=== PATIENT | female | born 1940 | race African-American/Black ===

== ENCOUNTER → 2017-04-01 | Outpatient (CLI) | payer MEDICARE ==
[~2017-04-01] MED LIST: AEROI INH; DOXY100T OR; FLUT1INH INH; LEVO25TA4 PO; LISI10TA3 PO; LORT5TAB PO; LORTA5 PO; PRED20 PO; SIMV20TA PO; SYNT25TA PO; TEMA15CA PO; TRAM50TA PO; TRAZ50TA12 PO; VENTAER INH; ZOSTINJ SQ
[2017-04-01 08:22] LABS: AUTOMATED NEUTROPHIL # 6.3 TH/MM3 (1.8-7.7); BASOPHIL % 0.5 % (0.0-2.0); EOSINOPHIL # 0.2 TH/MM3 (0-0.4); EOSINOPHIL % 2.6 % (0.0-4.0); HEMATOCRIT 36.3 % (35.0-46.0); HEMO FLAGS DIFF FINAL; LYMPH % 18.6 % (9.0-44.0); LYMPHOCYTE # 1.7 TH/MM3 (1.0-4.8); MEAN CELL VOLUME 87.7 FL (80.0-100.0); MEAN CORPUSCULAR HEMOGLOBIN 28.9 PG (27.0-34.0); MONO % 7.6 % (0.0-8.0); NEUT % 70.7 % (16.0-70.0); PLATELET COUNT 291 TH/MM3 (150-450); RED BLOOD COUNT 4.14 MIL/MM3 (4.00-5.30); RED CELL DISTRIBUTION WIDTH 13.7 % (11.6-17.2); WHITE BLOOD COUNT 8.9 TH/MM3 (4.0-11.0)
[2017-04-01 08:43] LABS: ANION GAP 6 MEQ/L (5-15); AST (GOT) 10 U/L (15-37); BICARBONATE 28.8 MEQ/L (21.0-32.0); BLOOD UREA NITROGEN 13 MG/DL (7-18); CHLORIDE 107 MEQ/L (98-107); GLOMERULAR FILTRATION RATE 60 ML/MIN (>89); GLUCOSE,FASTING 160 MG/DL (74-99); POTASSIUM 4.1 MEQ/L (3.5-5.1); SODIUM (NA) 142 MEQ/L (136-145)
[2017-04-01 08:52] LABS: ALKALINE PHOSPHATASE 78 U/L (45-117); ALT (GPT) 12 U/L (10-53); FREE T3 2.63 PG/ML (2.18-3.98); FREE T4 1.23 NG/DL (0.76-1.46); HDL CHOLESTEROL 50.6 MG/DL (40.0-60.0); LDL CHOLESTEROL 106 MG/DL (0-99); TOTAL BILIRUBIN ADULT 0.4 MG/DL (0.2-1.0)
[2017-04-01 10:26] LABS: MICRO ALBUMIN RANDOM URINE RAW 12.7 MG/L (0.0-30.0)
[2017-04-01 17:10] LABS: HEMOGLOBIN A1a 1.1 %; HEMOGLOBIN A1b 1.8 %; HEMOGLOBIN Ao 82.6 %; HEMOGLOBIN LA1C 2.3 %; HEMOGLOBIN P3 4.1 %
== END ==
LOC: CLAB 07:36
PROVIDERS: ATTEND Internal Medicine
DX: M19.90 Unspecified osteoarthritis, unspecified site (principal); E11.21 Type 2 diabetes mellitus with diabetic nephropathy; I10 Essential (primary) hypertension
CPT/HCPCS: 36415; 80053; 80061; 82043; 83036; 84439; 84443; 84481; 85025

== ENCOUNTER → 2017-05-16 | Outpatient (CLI) | payer MEDICARE ==
[2017-05-16 08:33] LABS: HEMATOCRIT 30.9 % (35.0-46.0); MEAN CELL VOLUME 89.3 FL (80.0-100.0); MEAN CORPUSCULAR HEMOGLOBIN 28.3 PG (27.0-34.0); MEAN CORPUSCULAR HGB CONC 31.7 % (32.0-36.0); PLATELET COUNT 274 TH/MM3 (150-450); RED BLOOD COUNT 3.46 MIL/MM3 (4.00-5.30); REVIEW FLAG FINAL
[2017-05-16 09:28] LABS: ANION GAP 11 MEQ/L (5-15); AST (GOT) 10 U/L (15-37); BICARBONATE 17.3 MEQ/L (21.0-32.0); BLOOD UREA NITROGEN 73 MG/DL (7-18); CHLORIDE 113 MEQ/L (98-107); GLOMERULAR FILTRATION RATE 11 ML/MIN (>89); GLUCOSE,FASTING 115 MG/DL (74-99); POTASSIUM 4.6 MEQ/L (3.5-5.1); SODIUM (NA) 141 MEQ/L (136-145)
[2017-05-16 09:39] LABS: ALKALINE PHOSPHATASE 63 U/L (45-117); ALT (GPT) 14 U/L (10-53); FREE T4 1.25 NG/DL (0.76-1.46); HDL CHOLESTEROL 32.2 MG/DL (40.0-60.0); LDL CHOLESTEROL 63 MG/DL (0-99); TOTAL BILIRUBIN ADULT 0.2 MG/DL (0.2-1.0)
== END ==
LOC: CLAB 08:11
PROVIDERS: ATTEND Internal Medicine
DX: E78.5 Hyperlipidemia, unspecified (principal); I10 Essential (primary) hypertension; E03.9 Hypothyroidism, unspecified; Z00.00 Encounter for general adult medical examination without abnormal findings; Z12.11 Encounter for screening for malignant neoplasm of colon
CPT/HCPCS: 36415; 80053; 80061; 84439; 84443; 84481; 85027

== ENCOUNTER 2017-05-17 12:05 | Inpatient (IN) | payer MEDICARE ==
[~2017-05-17] VITALS: Ht 165.1 cm; Wt 54.9 kg
[~2017-05-17 12:05] MED LIST changes: -FLUT1INH INH; -LEVO25TA4 PO; -LISI10TA3 PO; -SIMV20TA PO; -TEMA15CA PO; -TRAM50TA PO; -TRAZ50TA12 PO; -ZOSTINJ SQ
[2017-05-17 12:07] VITALS: BP 110/55; PULSE 75; RESP 20; TEMP 98; O2SAT 100
[2017-05-17 15:07] VITALS: BP 137/66; PULSE 77; RESP 18; TEMP 98.7; O2SAT 100
[2017-05-17] MEDS ORDERED: FLUT1INH INH (15:13)
[2017-05-17] MEDS ORDERED: TRAM50TA PO (15:13)
[2017-05-17] MEDS ORDERED: ZOSTINJ SQ (15:13)
[2017-05-17] MEDS ORDERED: LEVO25TA4 PO (15:13)
[2017-05-17] MEDS ORDERED: LISI10TA3 PO (15:13)
[2017-05-17] MEDS ORDERED: SIMV20TA PO (15:13)
[2017-05-17] MEDS ORDERED: TEMA15CA PO (15:13)
[2017-05-17] MEDS ORDERED: TRAZ50TA12 PO (15:13)
[2017-05-17] MEDS ORDERED: SODIUM CHLOR 0.9% 1000 ML INJ 1,000 ML IV ONE (15:15)
--- NOTE | 2017-05-17 15:31 | PD ---
HPI Chief Complaint: General Weakness Time Seen by Provider: 15:02 Travel History International Travel<30 days: No Contact w/Intl Traveler<30days: No Traveled to known affect area: No History of Present Illness HPI 76 y/o female presents with decreased appetite, generalized weakness, nausea and vomiting that is been present for the past couple of weeks. She went to her primary care physician that did blood work this morning that showed that she had kidney failure and wanted her to come here for admission. The patient denies any pain or any other concurrent complaints. Quality is generally weak. Severity is all over. Duration is past couple weeks. She denies prior history of issues with her kidneys. PFSH Past Medical History Arthritis: Yes Asthma: Yes Autoimmune Disease: No Blood Disorders: No Anxiety: No Depression: No Heart Rhythm Problems: No Cancer: No Cardiovascular Problems: Yes High Cholesterol: No Chemotherapy: No Chest Pain: No Congestive Heart Failure: No COPD: No Cerebrovascular Accident: No Diabetes: No Diminished Hearing: No GERD: No Glaucoma: No Headaches: No Hepatitis: No Hiatal Hernia: No Hypertension: No Kidney Stones: No Musculoskeletal: Yes Respiratory: Yes Myocardial Infarction: No Radiation Therapy: No Renal Failure: No Seizures: No Sickle Cell Disease: No Sleep Apnea: No Thyroid Disease: Yes Ulcer: No Menopausal: Yes Past Surgical History Surgical History: No Previous Surgery Abdominal Surgery: No AICD: No Cardiac Surgery: No Ear Surgery: No Endocrine Surgery: No Eye Surgery: No Genitourinary Surgery: No Gynecologic Surgery: No Oral Surgery: No Pacemaker: No Thoracic Surgery: No Social History Alcohol Use: No Tobacco Use: No Substance Use: No Allergies-Medications (Allergen,Severity, Reaction): Coded Allergies: ibuprofen (Verified Allergy, Severe, ARRYTHMIA, 05/17/17) naproxen (Unverified Allergy, Severe, 05/17/17) Uncoded Allergies: ALEVE (Allergy, Mild, 09/24/03) Reported Meds & Prescriptions Reported Meds & Active Scripts Active Reported Zostavax Inj (Zoster Vaccine Live) 0.65 Ml Inj 0.65 Ml SQ .ONCE Trazodone (Trazodone HCl) 50 Mg Tab 50 Mg PO HS Tramadol (Tramadol HCl) 50 Mg Tab 50 Mg PO Q8H PRN Temazepam 15 Mg Cap 15 Mg PO HS PRN Simvastatin 20 Mg Tab 20 Mg PO DAILY Lisinopril 10 Mg Tab 10 Mg PO DAILY Levothyroxine (Levothyroxine Sodium) 25 Mcg Tab 25 Mcg PO DAILY Breo Ellipta Inh (Fluticasone/Vilanterol) 100-25 Mcg/Act Inh 1 Puff INH DAILY Use daily at the same time. Review of Systems Except as stated in HPI: all other systems reviewed are Neg Physical Exam Narrative GENERAL: Well-nourished, well-developed patient. SKIN: Warm and dry. HEAD: Normocephalic and atraumatic. EYES: No injection or drainage. ENT: No nasal drainage noted. NECK: Supple, trachea midline. CARDIOVASCULAR: Regular rate and rhythm RESPIRATORY: Breath sounds equal bilaterally. No accessory muscle use. GASTROINTESTINAL: Abdomen soft, non-tender, nondistended. NEUROLOGICAL: Awake and alert. Motor and sensory grossly within normal limits. Normal speech. Data Data Last Documented VS Vital Signs Date Time Temp Pulse Resp B/P (MAP) Pulse Ox O2 Delivery O2 Flow Rate FiO2 05/17/17 15:07 98.7 77 18 137/66 (89) 100 Room Air Orders Orders Urinalysis - C+S If Indicated (05/17/17 15:09) Sodium Chlor 0.9% 1000 Ml Inj (Ns 1000 M (05/17/17 15:15) Vascular Access Team Consult/P PRN (05/17/17 15:24) Vascular Access Team Consult/P PRN (05/17/17 15:24) Vascular Poc Ultrasound (05/17/17 ) Admit Order (Ed Use Only) (05/17/17 15:49) MDM Medical Decision Making Medical Screen Exam Complete: Yes Emergency Medical Condition: Yes Medical Record Reviewed: Yes (past history confirmed) Interpretation(s) Acute renal failure noted with creatinine of 4-1/2 with prior at 1.7 Differential Diagnosis Acute renal failure, electrolyte abnormality, anemia, UTI Narrative Course Patient had lab work from this morning which confirms acute renal failure. We' ll check urinalysis and admit to the hospital for further care and dose with a liter of fluids Physician Communication Physician Communication Dr. johnston agrees to admission Diagnosis Primary Impression: Acute renal failure Qualified Codes: N17.9 - Acute kidney failure, unspecified Admitting Information Admitting Physician Requests: Admit Melinda Stanley MD May 17, 2017 15:31
[2017-05-17] MEDS ORDERED: DEXTROSE 50% IN WATER 50 ML VIAL(D50) IV PUSH PRN (16:45)
[2017-05-17] MEDS ORDERED: traMADol HCL 50 MG TAB PO PRN (16:45)
[2017-05-17] MEDS ORDERED: GLUCAGON 1 MG/ML VIAL OTHER PRN (16:45)
[2017-05-17] MEDS ORDERED: SODIUM CHLORIDE 0.9% FLUSH 10 ML FLUSH IV FLUSH PRN (16:45)
[2017-05-17] MEDS ORDERED: NALOXONE HCL 0.4 MG/ML AMP IV PUSH PRN (16:45)
--- NOTE | 2017-05-17 16:52 | HHI.HP ---
[facility] Dave Snell MD Admission Diagnosis acute renal failure Diagnoses: (1) Diabetes Diagnosis: Secondary (2) Hypertension Diagnosis: Secondary (3) Hyperlipidemia Diagnosis: Secondary (4) Anemia Diagnosis: Secondary (5) COPD (chronic obstructive pulmonary disease) Diagnosis: Secondary (6) Hypothyroidism Diagnosis: Secondary (7) Acute renal failure (8) Dehydration Diagnosis: Principal Chief Complaint: Generalized weakness and abnormal labs Travel History International Travel<30 Days: No Contact w/Intl Traveler <30 Da: No Traveled to Known Affected Are: No History of Present Illness 76 y/o female presents with decreased appetite, generalized weakness, nausea and vomiting that is been present for the past couple of weeks. She went to her primary care physician that did blood work this morning that showed that she had kidney failure and wanted her to come here for admission. The patient denies any pain or any other concurrent complaints. Quality is generally weak. Severity is all over. Duration is past couple weeks. She denies prior history of issues with her kidneys. Patient noted to have acute renal failure. Will be admitted for dehydration and medication adjustment and consult nephrology Review of Systems Constitutional: COMPLAINS OF: Fatigue, DENIES: Diaphoretic episodes, Fever, Weight gain, Weight loss, Chills, Dizziness, Change in appetite Endocrine: DENIES: Abnorml menstrual pattern, Heat/cold intolerance, Polydipsia , Polyuria Eyes: DENIES: Blurred vision, Diplopia, Eye inflammation, Eye pain, Vision loss Ears, nose, mouth, throat: DENIES: Tinnitus, Hearing loss, Vertigo, Nasal discharge Respiratory: DENIES: Apneas, Cough, Snoring, Wheezing, Hemoptysis Cardiovascular: DENIES: Chest pain, Palpitations, Syncope, Dyspnea on Exertion , PND Gastrointestinal: DENIES: Abdominal pain, Black stools, Bloody stools, Constipation Genitourinary: DENIES: Abnormal vaginal bleeding, Dysmenorrhea, Dyspareunia Musculoskeletal: DENIES: Joint pain, Muscle aches, Stiffness, Joint Swelling, Back pain Integumentary: DENIES: Abnormal pigmentation, Pruritus, Rash, Nail changes Hematologic/lymphatic: DENIES: Bruising, Lymphadenopathy Immunologic/allergic: DENIES: Eczema, Urticaria Neurologic: COMPLAINS OF: Localized weakness, DENIES: Abnormal gait, Headache Psychiatric: COMPLAINS OF: Anxiety, Mood changes, Depression, DENIES: Confusion Past Family Social History Past Medical History Anxiety Depression Hypothyroidism Hypertension Hypercholesterolemia Asthma/COPD Diabetes mellitus Past Surgical History Arthroscopic knee surgery Tubal ligation Reported Medications Reported Meds & Active Scripts Active Reported Zostavax Inj (Zoster Vaccine Live) 0.65 Ml Inj 0.65 Ml SQ .ONCE Trazodone (Trazodone HCl) 50 Mg Tab 50 Mg PO HS Tramadol (Tramadol HCl) 50 Mg Tab 50 Mg PO Q8H PRN Temazepam 15 Mg Cap 15 Mg PO HS PRN Simvastatin 20 Mg Tab 20 Mg PO DAILY Lisinopril 10 Mg Tab 10 Mg PO DAILY Levothyroxine (Levothyroxine Sodium) 25 Mcg Tab 25 Mcg PO DAILY Breo Ellipta Inh (Fluticasone/Vilanterol) 100-25 Mcg/Act Inh 1 Puff INH DAILY Use daily at the same time. Allergies: Coded Allergies: ibuprofen (Verified Allergy, Severe, ARRYTHMIA, 05/17/17) naproxen (Unverified Allergy, Severe, 05/17/17) Uncoded Allergies: ALEVE (Allergy, Mild, 09/24/03) Active Ordered Medications Current Medications Sodium Chloride 1,000 ml @ 999 mls/hr BOLUS ONCE IV Last administered on 05/17t 16:09; Start 05/17/17 at 15:15; Stop 05/17/17 at 16:15; Status DC Insulin Aspart (NovoLOG SUPPLEMENTAL SCALE) 1 ACHS SLIDING SCALE SQ ; Start at 17:00; Status UNV Dextrose (D50w (Vial) Inj) 50 ml UNSCH PRN IV PUSH HYPOGLYCEMIA-SEE COMMENTS; Start 05/17/17 at 16:45; Status UNV Glucagon (Glucagon Inj) 1 mg UNSCH PRN OTHER HYPOGLYCEMIA-SEE COMMENTS; Start 05/17/17 at 16:45; Status UNV Fluticasone/ Vilanterol (Breo Ellipta 100-25 Inh) 1 puff DAILY INH ; Start 05/18 at 09:00; Status UNV Levothyroxine Sodium (Synthroid) 25 mcg DAILY PO ; Start 05/18/17 at 09:00; Status UNV Temazepam (Restoril) 15 mg HS PRN PO INSOMNIA; Start 05/17/17 at 16:45; Status UNV Tramadol HCl (Ultram) 50 mg Q8H PRN PO PAIN; Start 05/17/17 at 16:45; Status UNV Trazodone HCl (Desyrel) 50 mg HS PO ; Start 05/17/17 at 21:00; Status UNV Non-Formulary Medication 20 mg DAILY PO ; Start 05/18/17 at 09:00; Status UNV Clonidine (Catapres) 0.1 mg Q4H PRN PO SBP>160, DBP>90; Start 05/17/17 at 16:45 ; Status UNV Family History Hypertension possible diabetes Social History Denies any tobacco alcohol or illicits Physical Exam Vital Signs Vital Signs Date Time Temp Pulse Resp B/P (MAP) Pulse Ox O2 Delivery O2 Flow Rate FiO2 05/17/17 15:07 98.7 77 18 137/66 (89) 100 Room Air 05/17/17 12:07 98.0 75 20 110/55 (73) 100 Room Air Physical Exam GENERAL: This is a well-nourished, well-developed patient, in no apparent distress. SKIN: No rashes, ecchymoses or lesions. Cool and dry. HEAD: Atraumatic. Normocephalic. No temporal or scalp tenderness. EYES: Pupils equal round and reactive. Extraocular motions intact. No scleral icterus. No injection or drainage. ENT: Nose without bleeding, purulent drainage or septal hematoma. Throat without erythema, tonsillar hypertrophy or exudate. Uvula midline. Airway patent. NECK: Trachea midline. No JVD or lymphadenopathy. Supple, nontender, no meningeal signs. CARDIOVASCULAR: Regular rate and rhythm without murmurs, gallops, or rubs. S1 and S2 no S3 or S4 no heave or thrill or rub or gallop RESPIRATORY: Clear to auscultation. Breath sounds equal bilaterally. No wheezes , rales, or rhonchi. GASTROINTESTINAL: Abdomen soft, non-tender, nondistended. No hepato-splenomegaly , or palpable masses. No guarding. MUSCULOSKELETAL: Extremities without clubbing, cyanosis, or edema. No joint tenderness, effusion, or edema noted. No calf tenderness. Negative Homans sign bilaterally. NEUROLOGICAL: Awake and alert. Cranial nerves II through XII intact. Motor and sensory grossly within normal limits. 4 out of 5 muscle strength in all muscle groups. Normal speech. Insight and judgment is good Mood and behaviors appropriate Laboratory Please see last admission Caprini VTE Risk Assessment Caprini VTE Risk Assessment: Mod/High Risk (score >= 2) Caprini Risk Assessment Model Point Value = 1 Point Value = 2 Point Value = 3 Point Value = 5 Age 41-60 Minor surgery BMI > 25 kg/m2 Swollen legs Varicose veins or History of unexplained or recurrent spontaneous Oral contraceptives or hormone replacement Sepsis (< 1 month) Serious lung disease, including pneumonia (< 1 month) Abnormal pulmonary function Acute myocardial infarction Congestive heart failure (< 1 month) History of inflammatory bowel disease Medical patient at bed rest Age 61-74 Arthroscopic surgery Major open surgery (> 45 min) Laparoscopic surgery (> 45 min) Malignancy Confined to bed (> 72 hours) Immobilizing plaster cast Central venous access Age >= 75 History of VTE Family history of VTE Factor V Leiden Prothrombin [id number] Lupus anticoagulant Anticardiolipin antibodies Elevated serum homocysteine Heparin-induced thrombocytopenia Other congenital or acquired thrombophilia Stroke (< 1 month) Elective arthroplasty Hip, pelvis, or leg fracture Acute spinal cord injury (< 1 month) Prophylaxis Regimen Total Risk Factor Score Risk Level Prophylaxis Regimen 0-1 Low Early ambulation 2 Moderate Order ONE of the following: *Sequential Compression Device (SCD) *Heparin 5000 units SQ BID 3-4 Higher Order ONE of the following medications: *Heparin 5000 units SQ TID *Enoxaparin/Lovenox 40 mg SQ daily (WT < 150 kg, CrCl > 30 mL/min) *Enoxaparin/Lovenox 30 mg SQ daily (WT < 150 kg, CrCl > 10-29 mL/min) *Enoxaparin/Lovenox 30 mg SQ BID (WT < 150 kg, CrCl > 30 mL/min) AND/OR *Sequential Compression Device (SCD) 5 or more Highest Order ONE of the following medications: *Heparin 5000 units SQ TID (Preferred with Epidurals) *Enoxaparin/Lovenox 40 mg SQ daily (WT < 150 kg, CrCl > 30 mL/min) *Enoxaparin/Lovenox 30 mg SQ daily (WT < 150 kg, CrCl > 10-29 mL/min) *Enoxaparin/Lovenox 30 mg SQ BID (WT < 150 kg, CrCl > 30 mL/min) AND *Sequential Compression Device (SCD) Assessment and Plan Problem List: (1) Dehydration ICD Code: E86.0 - Dehydration (2) Hypertension ICD Code: I10 - Essential (primary) hypertension (3) Hypothyroidism ICD Code: E03.9 - Hypothyroidism, unspecified (4) Hyperlipidemia ICD Code: E78.5 - Hyperlipidemia, unspecified (5) Diabetes ICD Code: E11.9 - Type 2 diabetes mellitus without complications (6) Anemia ICD Code: D64.9 - Anemia, unspecified (7) COPD (chronic obstructive pulmonary disease) ICD Code: J44.9 - Chronic obstructive pulmonary disease, unspecified (8) Acute renal failure ICD Code: N17.9 - Acute kidney failure, unspecified Status: Acute Assessment and Plan Acute renal failure we'll consult nephrology we'll get ultrasounds of bilateral kidneys continue on IV fluids. Stop All nephrotoxic agents Hypertension hold her lisinopril Catapres when necessary Anxiety continue on her trazodone and temazepam Hyperlipidemia continue on her simvastatin Hypothyroidism continue on levothyroxine Asthma/COPD continue on the Breo DuoNeb's when necessary Diabetes Accu-Cheks before meals and at bedtime with sliding scale coverage Last physical therapy to eval and treat as well as occupational therapy Code Status Full code Discussed Condition With Discussed with family and the emergency room physician and RN Physician Certification 2 Midnight Certification Type: Admission for Inpatient Services Order for Inpatient Services The services are ordered in accordance with Medicare regulations or non- Medicare payer requirements, as applicable. In the case of services not specified as inpatient-only, they are appropriately provided as inpatient services in accordance with the 2-midnight benchmark. Estimated LOS (days): 4 4 days is the estimated time the patient will need to remain in the hospital, assuming treatment plan goals are met and no additional complications. Post-Hospital Plan: Not yet determined Problem Qualifiers (1) Acute renal failure: Qualified Codes: N17.9 - Acute kidney failure, unspecified Williams Villatoro DO May 17, 2017 16:52
[2017-05-17 17:26] LABS: BACTERIA, URINE OCC /hpf; BLOOD, URINE NEG (NEG); COMMENT (UR) CULTURE INDICATED; CULTURE IF INDICATED CULTURE INDICATED; GLUCOSE,URINE NEG (NEG); HYALINE CAST, URINE 33 /lpf (RARE); KETONE, URINE NEG (NEG); MUCUS URINE FEW /lpf (OCC); NITRITE,URINE NEG (NEG); PH, URINE 5.5 (5.0-8.5); SQUAMOUS EPITHELIAL CELL URINE 1 /hpf (0-5); URINE COLOR YELLOW (YELLW/STRAW)
[2017-05-17] MEDS ORDERED: LACTULOSE SYRUP 20 GM/30 ML CUP PO PRN (18:00)
[2017-05-17] MEDS ORDERED: MAGNESIUM HYDROXIDE SUSP 30 ML CUP PO PRN (18:00)
[2017-05-17] MEDS ORDERED: cloNIDine HCL 0.1 MG TAB PO PRN (18:00)
[2017-05-17] MEDS ORDERED: PROCHLORPERAZINE 25 MG SUPP RECTAL PRN (18:00)
[2017-05-17] MEDS ORDERED: TEMAZEPAM 15 MG CAP PO PRN (18:00)
[2017-05-17] MEDS ORDERED: MORPHINE SULFATE 4 MG/ML INJ IV PUSH PRN ×2 (18:00)
[2017-05-17] MEDS ORDERED: BISACODYL 10 MG SUPP RECTAL PRN (18:00)
[2017-05-17] MEDS ORDERED: ACETAMINOPHEN 325 MG TAB PO PRN ×2 (18:00→20:00)
[2017-05-17] MEDS ORDERED: ONDANSETRON HCL 4 MG/2 ML VIAL IVP PRN (18:00)
[2017-05-17] MEDS: INSULIN ASPART SUPPLEMENTAL SCALE SQ SCH ×2 (18:00→21:00)
[2017-05-17] MEDS ORDERED: RESP: ALBUTEROL 2.5 MG/IPRATROPIUM 0.5 MG NEB (PRN) NEB (18:00)
[2017-05-17] MEDS ORDERED: SENNOSIDES 8.6 MG TAB PO PRN (18:00)
[2017-05-17] MEDS: HEPARIN SODIUM - SQ 10,000 UNITS/ML VIAL SQ SCH (18:09)
[2017-05-17 18:11] VITALS: BP 135/61; PULSE 74; RESP 17; TEMP 97.7; O2SAT 99
[2017-05-17] MEDS: PANTOPRAZOLE SOD 40 MG DELAYED RELEASE TAB PO SCH (18:22)
--- NOTE | 2017-05-17 18:37 | RADRPT ---
EXAM DATE/TIME: 05/17/2017 17:59 [facility] COMPARISON: No previous studies available for comparison. INDICATIONS : Increased BUN/Creatnine. MEDICAL HISTORY : Arthritis. Thyroid disease. Neck pain. Weakness. Cardiac disorders. Asthma. Anxiety. Depression. SURGICAL HISTORY : None. ENCOUNTER: Initial ACUITY: 1 day PAIN SCORE: 0/10 LOCATION: Bilateral flank MEASUREMENTS: RIGHT KIDNEY: 9.4 x 4.4 x 4.0 cm LEFT KIDNEY: 12.9 x 4.8 x 5.4 cm FINDINGS: RIGHT KIDNEY: Elevated parenchymal echogenicity, similar to the adjacent liver. No hydronephrosis or mass. LEFT KIDNEY: Elevated parenchymal echogenicity, similar to the adjacent spleen. There is a 6 cm benign appearing c yst of the lower pole. No hydronephrosis or solid mass. BLADDER: Within normal limits given the degree of distension. CONCLUSION: 1. Increased echogenicity of both kidneys typical of chronic parenchymal disease. 2. No evidence of obstructive uropathy or other acute abnormality. 3. Large but benign-appearing cyst of the left lower pole. Enzo Lemus MD on May 17, 2017 at 18:34 Board Certified Radiologist. This report was verified electronically.
[2017-05-17 20:00] VITALS: BP 122/58; PULSE 79; RESP 20; TEMP 97.8; O2SAT 100
[2017-05-17] MEDS ORDERED: oxyCODONE/ACETAMINOPHEN 10 MG/325 MG TAB PO PRN (20:00)
[2017-05-17] MEDS ORDERED: oxyCODONE/ACETAMINOPHEN 5 MG/325 MG TAB PO PRN (20:00)
[2017-05-17] MEDS: SODIUM CHLORIDE 0.9% FLUSH 10 ML FLUSH IV FLUSH SCH (21:00)
[2017-05-17] MEDS: SODIUM CHLOR 0.9% 1000 ML INJ 1,000 ML IV SCH (21:13)
[2017-05-17] MEDS: DOCUSATE SODIUM 50 MG/SENNA 8.6 MG TAB PO SCH (21:14)
[2017-05-17] MEDS: guaiFENesin E.R. 600 MG TAB PO SCH (21:14)
[2017-05-17] MEDS: traZODone HCL 50 MG TAB PO SCH (21:14)
[2017-05-17 23:29] VITALS: PULSE 74
[2017-05-18] VITALS (8 sets, daily range): BP systolic 106–146; BP diastolic 52–63; PULSE 68–96; RESP 17–20; TEMP 94.1–98.7; O2SAT 95–99
[2017-05-18] MEDS: SODIUM CHLOR 0.9% 1000 ML INJ 1,000 ML IV SCH ×3 (00:45→14:45)
[2017-05-18] MEDS: HEPARIN SODIUM - SQ 10,000 UNITS/ML VIAL SQ SCH (06:19)
[2017-05-18] MEDS: LEVOTHYROXINE SODIUM 25 MCG TAB PO SCH (06:19)
[2017-05-18 06:30] LABS: AUTOMATED NEUTROPHIL # 6.6 TH/MM3 (1.8-7.7); BASOPHIL % 0.4 % (0.0-2.0); EOSINOPHIL # 0.4 TH/MM3 (0-0.4); EOSINOPHIL % 4.2 % (0.0-4.0); HEMATOCRIT 27.5 % (35.0-46.0); HEMO FLAGS DIFF FINAL; LYMPH % 12.9 % (9.0-44.0); LYMPHOCYTE # 1.1 TH/MM3 (1.0-4.8); MEAN CELL VOLUME 88.2 FL (80.0-100.0); MEAN CORPUSCULAR HEMOGLOBIN 28.1 PG (27.0-34.0); MEAN CORPUSCULAR HGB CONC 31.8 % (32.0-36.0); MONO % 5.7 % (0.0-8.0); NEUT % 76.8 % (16.0-70.0); PLATELET COUNT 250 TH/MM3 (150-450); RED BLOOD COUNT 3.12 MIL/MM3 (4.00-5.30); WHITE BLOOD COUNT 8.6 TH/MM3 (4.0-11.0)
[2017-05-18 07:09] LABS: ALKALINE PHOSPHATASE 55 U/L (45-117); ALT (GPT) 10 U/L (10-53); ANION GAP 8 MEQ/L (5-15); AST (GOT) 11 U/L (15-37); BICARBONATE 17.1 MEQ/L (21.0-32.0); BLOOD UREA NITROGEN 59 MG/DL (7-18); CHLORIDE 120 MEQ/L (98-107); GLOMERULAR FILTRATION RATE 19 ML/MIN (>89); MAGNESIUM 2.1 MG/DL (1.5-2.5); POTASSIUM 4.5 MEQ/L (3.5-5.1); SODIUM (NA) 145 MEQ/L (136-145); TOTAL BILIRUBIN ADULT 0.3 MG/DL (0.2-1.0)
[2017-05-18] MEDS: INSULIN ASPART SUPPLEMENTAL SCALE SQ SCH ×4 (08:00→21:00)
[2017-05-18] MEDS: guaiFENesin E.R. 600 MG TAB PO SCH ×2 (08:08→21:06)
[2017-05-18] MEDS: PRAVASTATIN SOD 40 MG TAB PO SCH (08:08)
[2017-05-18] MEDS: DOCUSATE SODIUM 50 MG/SENNA 8.6 MG TAB PO SCH ×2 (08:09→21:06)
[2017-05-18] MEDS: PANTOPRAZOLE SOD 40 MG DELAYED RELEASE TAB PO SCH (08:09)
[2017-05-18] MEDS: FLUTICASONE 100 MCG/VILANTEROL 25 MCG INHALER INH SCH (08:11)
[2017-05-18] MEDS: SODIUM CHLORIDE 0.9% FLUSH 10 ML FLUSH IV FLUSH SCH ×2 (09:00→20:36)
[2017-05-18] MEDS ORDERED: INFLUENZA VIRUS VACCINE (QUADRIVALENT) 0.5 ML SYR IM ONE (10:00)
[2017-05-18] MEDS ORDERED: PNEUMOCOCCAL POLYVALENT INJ 25 MCG/0.5 ML SYR IM ONE (10:00)
[2017-05-18 10:50] LABS: HEMOGLOBIN A1a 1.1 %; HEMOGLOBIN A1b 1.8 %; HEMOGLOBIN Ao 83.4 %; HEMOGLOBIN LA1C 2.1 %; HEMOGLOBIN P3 5.8 %
--- NOTE | 2017-05-18 16:41 | HHI.PR ---
Subjective Remarks Patient states that she feels very weak However states that nausea has improved States that on previous day she had nausea vomiting and diarrhea Denies diarrhea currently Vital signs seems to be stable Objective Vitals Vital Signs Date Time Temp Pulse Resp B/P (MAP) Pulse Ox O2 Delivery O2 Flow Rate FiO2 05/18/17 16:01 97.7 81 20 146/63 (90) 98 05/18/17 12:10 94.1 96 20 138/63 (88) 96 05/18/17 11:26 95 21 05/18/17 08:18 98.7 75 20 114/58 (76) 99 05/18/17 08:03 68 05/18/17 05:03 97.7 74 17 113/56 (75) 98 05/18/17 01:11 98.6 71 17 106/52 (70) 95 05/17/17 23:29 74 05/17/17 20:00 97.8 79 20 122/58 (79) 100 05/17/17 18:11 97.7 74 17 135/61 (85) 99 05/17/17 17:55 I/O 05/17/17 05/17/17 05/17/17 05/18/17 05/18/17 05/18/17 07:00 15:00 23:00 07:00 15:00 23:00 Intake Total 1120 ml 1120 ml 240 ml Balance 1120 ml 1120 ml 240 ml Intake Oral 120 ml 120 ml 240 ml IV Total 1000 ml 1000 ml # Voids 1 1 Result Diagram: 05/18/17 0558 05/18/17 0558 Imaging Last Impressions Renal Ultrasound 05/17/17 0000 Signed Impressions: Service Date/Time: Wednesday, May 17, 2017 17:59 - CONCLUSION: 1. Increased echogenicity of both kidneys typical of chronic parenchymal disease. 2. No evidence of obstructive uropathy or other acute abnormality. 3. Large but benign-appearing cyst of the left lower pole. Enzo Lemus MD Objective Remarks Awake alert oriented 3, nonacute distress Moist mucous membranes Clear lungs bilaterally S1-S2 present with regular rate and rhythm, no murmur absent gallops appreciated Abdomen is soft, nontender nondistended X percent no edema and the patient has +2 peripheral pulses. Procedures None Medications and IVs Current Medications Medications (Trade) Dose Ordered Sig/Patt Route Start Time Stop Time Status Last Admin (NovoLOG SUPPLEMENTAL SCALE) 1 ACHS SLIDING SCALE SQ 05/17/17 18:00 (D50w (Vial) Inj) 50 ml UNSCH PRN IV PUSH 05/17/17 16:45 (Glucagon Inj) 1 mg UNSCH PRN OTHER 05/17/17 16:45 (Breo Ellipta 100-25 Inh) 1 puff DAILY INH 05/18/17 09:00 05/18/17 08:11 (Synthroid) 25 mcg DAILY@0600 PO 05/18/17 06:00 05/18/17 06:19 (Restoril) 15 mg HS PRN PO 05/17/17 18:00 (Desyrel) 50 mg HS PO 05/17/17 21:00 05/17/17 21:14 (Pravachol) 40 mg DAILY PO 05/18/17 09:00 05/18/17 08:08 (Catapres) 0.1 mg Q4H PRN PO 05/17/17 18:00 Sodium Chloride 1,000 ml @ 150 mls/hr Q6H40M IV 05/17/17 18:00 05/18/17 14:45 (NS Flush) 2 ml UNSCH PRN IV FLUSH 05/17/17 16:45 (NS Flush) 2 ml BID IV FLUSH 05/17/17 21:00 (Tylenol) 650 mg Q4H PRN PO 05/17/17 18:00 (Zofran Inj) 4 mg Q6H PRN IVP 05/17/17 18:00 (Compazine Supp) 25 mg Q12H PRN RECTAL 05/17/17 18:00 (Heparin Inj) 5,000 units Q12H SQ 05/17/17 18:00 05/18/17 06:19 (Tylenol) 650 mg Q6H PRN PO 05/17/17 20:00 05/18/17 15:22 (Percocet 5-325 Mg) 1 tab Q6H PRN PO 05/17/17 20:00 (Percocet 10-325 Mg) 1 tab Q6H PRN PO 05/17/17 20:00 (Morphine Inj) 2 mg Q3H PRN IV PUSH 05/17/17 18:00 (Morphine Inj) 4 mg Q3H PRN IV PUSH 05/17/17 18:00 (Narcan Inj) 0.4 mg UNSCH PRN IV PUSH 05/17/17 16:45 (Mireya-Colace) 1 tab BID PO 05/17/17 21:00 05/18/17 08:09 (Milk Of Magnesia Liq) 30 ml Q12H PRN PO 05/17/17 18:00 (Senokot) 17.2 mg Q12H PRN PO 05/17/17 18:00 (Dulcolax Supp) 10 mg DAILY PRN RECTAL 05/17/17 18:00 (Lactulose Liq) 30 ml DAILY PRN PO 05/17/17 18:00 (Mucinex Er) 600 mg BID PO 05/17/17 21:00 05/18/17 08:08 (Duoneb Neb) 1 ampule Q4HR NEB PRN NEB 05/17/17 18:00 (Protonix) 40 mg DAILY PO 05/17/17 18:00 05/18/17 08:09 Urinary Catheter: No Vascular Central Line Catheter: No A/P Problem List: (1) Acute renal failure ICD Code: N17.9 - Acute kidney failure, unspecified Status: Acute Plan: Acute kidney injury likely secondary to renal azotemia. Renal ultrasound showed increased echogenicity of both kidneys typical of chronic parenchymal disease. No evidence of obstructive uropathy or other acute abnormality. Large but benign-appearing cyst of the left lower pole. Creatinine on admission on was 4.54, notch and in down to 2.92. Continue IV fluids and continue to monitor BUN/creatinine, I would nephrotoxins , monitor strict input and output. (2) Dehydration ICD Code: E86.0 - Dehydration Plan: Continue IV fluids, dehydration improving. Dehydration likely secondary to nausea, decreased oral intake, vomiting and diarrhea. (3) Hypertension ICD Code: I10 - Essential (primary) hypertension Plan: Vital signs seems to be stable. Inhibitor held on admission due to elevation in creatinine. Continue to hold. (4) Hypothyroidism ICD Code: E03.9 - Hypothyroidism, unspecified Plan: Patient has a slightly lower TSH of 0.301 with a normal free T4. Likely euthyroid sick syndrome. Continue levothyroxine 25 g by mouth daily. (5) Hyperlipidemia ICD Code: E78.5 - Hyperlipidemia, unspecified Plan: Continue statin. (6) Diabetes ICD Code: E11.9 - Type 2 diabetes mellitus without complications Plan: Upon review of records the patient had a hemoglobin A1c of 10.2 in the year 2015. Hemoglobin A1c now at 6.7 diabetes is controlled. As per daughter the patient was started on metformin, however could not tolerate because of the GI side effects. I will consult the air hose coupler. Blood glucose checks have been stable, continue SSI with insulin NovoLog and continue to monitor Accu-Cheks. (7) Anemia ICD Code: D64.9 - Anemia, unspecified Plan: Upon review of records the patient had a normal hemoglobin up to recently on March 2014. Hemoglobin dropped from 12.0-9.8 from 04/01-05/16. Hemoglobin trending down. I will check iron studies and stool Hemoccult. (8) COPD (chronic obstructive pulmonary disease) ICD Code: J44.9 - Chronic obstructive pulmonary disease, unspecified Plan: Seems to be very stable. Continue Fluticasone - Vilanterol inhaler. (9) Metabolic acidosis ICD Code: E87.2 - Acidosis Plan: Likely secondary to acute kidney injury. I will switch normal saline to half-normal saline plus sodium bicarbonate. Continue to monitor BMP. (10) Generalized weakness ICD Code: R53.1 - Weakness Plan: Physical therapy consulted, appreciate recommendations. The patient will need home health physical therapy upon discharge. Assessment and Plan GI prophylaxis: Continue PPI. DVT prophylaxis: Continue SCDs, discontinue heparin subcutaneously given worsening anemia. Problem Qualifiers (1) Acute renal failure: Qualified Codes: N17.9 - Acute kidney failure, unspecified (2) Diabetes: Qualified Codes: E11.8 - Type 2 diabetes mellitus with unspecified complications (3) Anemia: Qualified Codes: D64.9 - Anemia, unspecified (4) COPD (chronic obstructive pulmonary disease): Qualified Codes: J44.9 - Chronic obstructive pulmonary disease, unspecified Rubin Easton MD May 18, 2017 16:41
[2017-05-18] MEDS: SODIUM BICARBONATE 8.4% INJ 75 MEQ in SODIUM CHLOR 0.45% 1000 ML INJ 1,000 ML IV SCH (18:02)
[2017-05-18 18:07] LABS: TRANSFERRIN IRON PROFILE 118 MG/DL (200-360)
[2017-05-18 18:10] LABS: FERRITIN 197 NG/ML (8-252)
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
[2017-05-18] MEDS: traZODone HCL 50 MG TAB PO SCH (21:06)
[2017-05-19] VITALS (9 sets, daily range): BP systolic 132–158; BP diastolic 60–71; PULSE 64–80; RESP 17–20; TEMP 97.5–98; O2SAT 96–100
[2017-05-19] MEDS: LEVOTHYROXINE SODIUM 25 MCG TAB PO SCH (05:12)
[2017-05-19] MEDS: INSULIN ASPART SUPPLEMENTAL SCALE SQ SCH ×4 (08:00→20:10)
[2017-05-19] MEDS: SODIUM CHLORIDE 0.9% FLUSH 10 ML FLUSH IV FLUSH SCH ×2 (09:00→20:13)
[2017-05-19] MEDS: PRAVASTATIN SOD 40 MG TAB PO SCH (09:46)
[2017-05-19] MEDS: FLUTICASONE 100 MCG/VILANTEROL 25 MCG INHALER INH SCH (09:46)
[2017-05-19] MEDS: DOCUSATE SODIUM 50 MG/SENNA 8.6 MG TAB PO SCH ×2 (09:46→20:12)
[2017-05-19] MEDS: PANTOPRAZOLE SOD 40 MG DELAYED RELEASE TAB PO SCH (09:46)
[2017-05-19] MEDS: guaiFENesin E.R. 600 MG TAB PO SCH ×2 (09:46→20:12)
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
[2017-05-19 14:26] LABS: BICARBONATE 20.4 MEQ/L (21.0-32.0); POTASSIUM 3.9 MEQ/L (3.5-5.1)
[2017-05-19] MEDS: SODIUM BICARBONATE 8.4% INJ 75 MEQ in SODIUM CHLOR 0.45% 1000 ML INJ 1,000 ML IV SCH (16:44)
--- NOTE | 2017-05-19 17:56 | HHI.PR ---
Subjective Remarks Denies cp/sob urinating well denies nausea appetite is improving Objective Vitals Vital Signs Date Time Temp Pulse Resp B/P (MAP) Pulse Ox O2 Delivery O2 Flow Rate FiO2 05/19/17 15:31 98.0 70 18 132/63 (86) 100 05/19/17 11:58 97.9 72 18 152/68 (96) 97 05/19/17 11:08 98 21 05/19/17 08:00 64 05/19/17 07:51 97.5 75 18 133/60 (84) 97 05/19/17 05:29 97.7 64 20 134/63 (86) 96 05/19/17 01:40 97.5 71 20 133/62 (85) 98 05/18/17 21:22 98.0 76 20 110/53 (72) 98 I/O 05/18/17 05/18/17 05/18/17 05/19/17 05/19/17 05/19/17 07:00 15:00 23:00 07:00 15:00 23:00 Intake Total 1120 ml 1713 ml 365 ml Balance 1120 ml 1713 ml 365 ml Intake Oral 120 ml 240 ml 365 ml IV Total 1000 ml 1473 ml # Voids 1 1 # Bowel Movements 1 Result Diagram: 05/18/17 0558 05/19/17 1300 Imaging Last Impressions Renal Ultrasound 05/17/17 0000 Signed Impressions: Service Date/Time: Wednesday, May 17, 2017 17:59 - CONCLUSION: 1. Increased echogenicity of both kidneys typical of chronic parenchymal disease. 2. No evidence of obstructive uropathy or other acute abnormality. 3. Large but benign-appearing cyst of the left lower pole. Enzo Lemus MD Objective Remarks Awake alert oriented 3, nonacute distress Moist mucous membranes Clear lungs bilaterally S1-S2 present with regular rate and rhythm, no murmur absent gallops appreciated Abdomen is soft, nontender nondistended X percent no edema and the patient has +2 peripheral pulses. Procedures None Medications and IVs Current Medications Medications (Trade) Dose Ordered Sig/Patt Route Start Time Stop Time Status Last Admin (NovoLOG SUPPLEMENTAL SCALE) 1 ACHS SLIDING SCALE SQ 05/17/17 18:00 (D50w (Vial) Inj) 50 ml UNSCH PRN IV PUSH 05/17/17 16:45 (Glucagon Inj) 1 mg UNSCH PRN OTHER 05/17/17 16:45 (Breo Ellipta 100-25 Inh) 1 puff DAILY INH 05/18/17 09:00 05/19/17 09:46 (Synthroid) 25 mcg DAILY@0600 PO 05/18/17 06:00 05/19/17 05:12 (Restoril) 15 mg HS PRN PO 05/17/17 18:00 (Desyrel) 50 mg HS PO 05/17/17 21:00 05/18/17 21:06 (Pravachol) 40 mg DAILY PO 05/18/17 09:00 05/19/17 09:46 (Catapres) 0.1 mg Q4H PRN PO 05/17/17 18:00 (NS Flush) 2 ml UNSCH PRN IV FLUSH 05/17/17 16:45 (NS Flush) 2 ml BID IV FLUSH 05/17/17 21:00 (Tylenol) 650 mg Q4H PRN PO 05/17/17 18:00 (Zofran Inj) 4 mg Q6H PRN IVP 05/17/17 18:00 (Compazine Supp) 25 mg Q12H PRN RECTAL 05/17/17 18:00 (Tylenol) 650 mg Q6H PRN PO 05/17/17 20:00 05/18/17 15:22 (Percocet 5-325 Mg) 1 tab Q6H PRN PO 05/17/17 20:00 (Percocet 10-325 Mg) 1 tab Q6H PRN PO 05/17/17 20:00 (Morphine Inj) 2 mg Q3H PRN IV PUSH 05/17/17 18:00 (Morphine Inj) 4 mg Q3H PRN IV PUSH 05/17/17 18:00 (Narcan Inj) 0.4 mg UNSCH PRN IV PUSH 05/17/17 16:45 (Mireya-Colace) 1 tab BID PO 05/17/17 21:00 05/19/17 09:46 (Milk Of Magnesia Liq) 30 ml Q12H PRN PO 05/17/17 18:00 (Senokot) 17.2 mg Q12H PRN PO 05/17/17 18:00 (Dulcolax Supp) 10 mg DAILY PRN RECTAL 05/17/17 18:00 (Lactulose Liq) 30 ml DAILY PRN PO 05/17/17 18:00 (Mucinex Er) 600 mg BID PO 05/17/17 21:00 05/19/17 09:46 (Duoneb Neb) 1 ampule Q4HR NEB PRN NEB 05/17/17 18:00 (Protonix) 40 mg DAILY PO 05/17/17 18:00 05/19/17 09:46 Sodium Bicarbonate 75 meq/Sodium Chloride 1,075 ml @ 42 mls/hr Q24H IV 05/18/17 18:00 05/19/17 16:44 Urinary Catheter: No Vascular Central Line Catheter: No A/P Problem List: (1) Acute renal failure ICD Code: N17.9 - Acute kidney failure, unspecified Status: Acute Plan: Acute kidney injury likely secondary to renal azotemia. Renal ultrasound showed increased echogenicity of both kidneys typical of chronic parenchymal disease. No evidence of obstructive uropathy or other acute abnormality. Large but benign-appearing cyst of the left lower pole. Creatinine on admission on was 4.54, notch and in down to 2.92. Continue IV fluids and continue to monitor BUN/creatinine, I would nephrotoxins , monitor strict input and output. 05/19 creatinine is trending down now 1.51. Continue half-normal saline plus sodium bicarbonate. (2) Dehydration ICD Code: E86.0 - Dehydration Plan: Continue IV fluids, dehydration improving. Dehydration likely secondary to nausea, decreased oral intake, vomiting and diarrhea. (3) Hypertension ICD Code: I10 - Essential (primary) hypertension Status: Chronic Plan: Vital signs seems to be stable. Inhibitor held on admission due to elevation in creatinine. Continue to hold. (4) Hypothyroidism ICD Code: E03.9 - Hypothyroidism, unspecified Status: Chronic Plan: Patient has a slightly lower TSH of 0.301 with a normal free T4. Likely euthyroid sick syndrome. Continue levothyroxine 25 g by mouth daily. (5) Hyperlipidemia ICD Code: E78.5 - Hyperlipidemia, unspecified Plan: Continue statin. (6) Diabetes ICD Code: E11.9 - Type 2 diabetes mellitus without complications Plan: Upon review of records the patient had a hemoglobin A1c of 10.2 in the year 2015. Hemoglobin A1c now at 6.7 diabetes is controlled. As per daughter the patient was started on metformin, however could not tolerate because of the GI side effects. I will consult the clinical staff educator. Blood glucose checks have been stable, continue SSI with insulin NovoLog and continue to monitor Accu-Cheks. (7) Anemia ICD Code: D64.9 - Anemia, unspecified Plan: Upon review of records the patient had a normal hemoglobin up to recently on March 2014. Hemoglobin dropped from 12.0-9.8 from 04/01-05/16. Hemoglobin trending down. I will check iron studies and stool Hemoccult. 05/19 stool Hemoccult negative. Iron studies normal. (8) COPD (chronic obstructive pulmonary disease) ICD Code: J44.9 - Chronic obstructive pulmonary disease, unspecified Plan: Seems to be very stable. Continue Fluticasone - Vilanterol inhaler. (9) Metabolic acidosis ICD Code: E87.2 - Acidosis Status: Acute Plan: Likely secondary to acute kidney injury. I will switch normal saline to half-normal saline plus sodium bicarbonate. Continue to monitor BMP. 05/19 metabolic acidosis improving, continue /2 ns + sodium bicarb (10) Generalized weakness ICD Code: R53.1 - Weakness Plan: Physical therapy consulted, appreciate recommendations. The patient will need home health physical therapy upon discharge. Assessment and Plan GI prophylaxis: Continue PPI. DVT prophylaxis: Continue SCDs, discontinue heparin subcutaneously given worsening anemia. Discharge Planning Possible DC in am. Problem Qualifiers (1) Acute renal failure: Qualified Codes: N17.9 - Acute kidney failure, unspecified (2) Hypertension: Qualified Codes: I10 - Essential (primary) hypertension (3) Hypothyroidism: Qualified Codes: E03.9 - Hypothyroidism, unspecified (4) Diabetes: Qualified Codes: E11.8 - Type 2 diabetes mellitus with unspecified complications (5) Anemia: Qualified Codes: D64.9 - Anemia, unspecified (6) COPD (chronic obstructive pulmonary disease): Qualified Codes: J44.9 - Chronic obstructive pulmonary disease, unspecified Rubin Easton MD May 19, 2017 17:56
[2017-05-19] MEDS: traZODone HCL 50 MG TAB PO SCH (20:12)
[2017-05-20 01:10] VITALS: BP 134/72; PULSE 63; RESP 17; TEMP 98.2; O2SAT 97
[2017-05-20] MEDS: LEVOTHYROXINE SODIUM 25 MCG TAB PO SCH (05:20)
[2017-05-20 05:32] VITALS: BP 149/66; PULSE 66; RESP 17; TEMP 97.3; O2SAT 99
[2017-05-20 08:00] VITALS: BP 150/67; PULSE 69; RESP 16; TEMP 98.2; O2SAT 96
[2017-05-20] MEDS: INSULIN ASPART SUPPLEMENTAL SCALE SQ SCH ×2 (08:00→12:00)
[2017-05-20 08:15] VITALS: PULSE 58
[2017-05-20] MEDS: SODIUM CHLORIDE 0.9% FLUSH 10 ML FLUSH IV FLUSH SCH (09:00)
[2017-05-20] MEDS: guaiFENesin E.R. 600 MG TAB PO SCH (09:09)
[2017-05-20] MEDS: PANTOPRAZOLE SOD 40 MG DELAYED RELEASE TAB PO SCH (09:09)
[2017-05-20] MEDS: FLUTICASONE 100 MCG/VILANTEROL 25 MCG INHALER INH SCH (09:09)
[2017-05-20] MEDS: PRAVASTATIN SOD 40 MG TAB PO SCH (09:09)
[2017-05-20] MEDS: DOCUSATE SODIUM 50 MG/SENNA 8.6 MG TAB PO SCH ×2 (09:09→09:11)
[2017-05-20 10:39] LABS: AUTOMATED NEUTROPHIL # 9.5 TH/MM3 (1.8-7.7); BASOPHIL # 0.1 TH/MM3 (0-0.2); BASOPHIL % 0.9 % (0.0-2.0); EOSINOPHIL # 0.2 TH/MM3 (0-0.4); EOSINOPHIL % 1.4 % (0.0-4.0); HEMATOCRIT 28.1 % (35.0-46.0); HEMO FLAGS DIFF FINAL; LYMPH % 12.2 % (9.0-44.0); LYMPHOCYTE # 1.5 TH/MM3 (1.0-4.8); MEAN CELL VOLUME 86.1 FL (80.0-100.0); MEAN CORPUSCULAR HEMOGLOBIN 27.9 PG (27.0-34.0); MEAN CORPUSCULAR HGB CONC 32.4 % (32.0-36.0); MONO % 5.8 % (0.0-8.0); NEUT % 79.7 % (16.0-70.0); PLATELET COUNT 254 TH/MM3 (150-450); RED BLOOD COUNT 3.26 MIL/MM3 (4.00-5.30); RED CELL DISTRIBUTION WIDTH 15.2 % (11.6-17.2); WHITE BLOOD COUNT 11.9 TH/MM3 (4.0-11.0)
[2017-05-20 10:58] LABS: BICARBONATE 23.1 MEQ/L (21.0-32.0); POTASSIUM 3.3 MEQ/L (3.5-5.1)
[2017-05-20 11:44] VITALS: BP 159/70; PULSE 65; RESP 16; TEMP 99; O2SAT 96
[2017-05-20] MEDS ORDERED: POTASSIUM CHLORIDE 10 MEQ CONTROLLED RELEASE TAB PO ONE (13:30)
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
--- NOTE | 2017-05-20 14:13 | HHI.FF ---
Face to Face Verification Diagnosis: (1) Acute renal failure (2) COPD (chronic obstructive pulmonary disease) (3) Dehydration (4) Anemia (5) Diabetes (6) Hyperlipidemia (7) Generalized weakness (8) Hypothyroidism (9) Metabolic acidosis (10) Hypertension Physical Therapy Order: Improve ambulation, Strength and gait training Home Health Nursing Order: Nursing assessment with vital signs I have seen patient Brenda Dumont on 05/20/17. My clinical findings support the need for the requested home health care services because: Need for psychosocial assistance High risk of falls I certify that my clinical findings support that this patient is homebound because: Hx COPD- exertion dyspnea/weakness Unsteady gait/balance Unsafe to leave home unassisted Unable to use public transportation Rubin Easton MD May 20, 2017 14:13
--- NOTE | 2017-05-20 14:19 | HHI.DS ---
Discharge Summary Admission Date May 17, 2017 at 15:51 Discharge Date: May 20, 2017 Admitting Diagnosis acute renal failure (1) Acute renal failure ICD Code: N17.9 - Acute kidney failure, unspecified Status: Acute (2) Dehydration ICD Code: E86.0 - Dehydration (3) Hypertension ICD Code: I10 - Essential (primary) hypertension Status: Chronic (4) Hypothyroidism ICD Code: E03.9 - Hypothyroidism, unspecified Status: Chronic (5) Hyperlipidemia ICD Code: E78.5 - Hyperlipidemia, unspecified (6) Diabetes ICD Code: E11.9 - Type 2 diabetes mellitus without complications (7) Anemia ICD Code: D64.9 - Anemia, unspecified (8) COPD (chronic obstructive pulmonary disease) ICD Code: J44.9 - Chronic obstructive pulmonary disease, unspecified (9) Metabolic acidosis ICD Code: E87.2 - Acidosis Status: Acute (10) Generalized weakness ICD Code: R53.1 - Weakness Procedures None Brief History - From Admission 76 y/o female presents with decreased appetite, generalized weakness, nausea and vomiting that is been present for the past couple of weeks. She went to her primary care physician that did blood work this morning that showed that she had kidney failure and wanted her to come here for admission. The patient denies any pain or any other concurrent complaints. Quality is generally weak. Severity is all over. Duration is past couple weeks. She denies prior history of issues with her kidneys. Patient noted to have acute renal failure. Will be admitted for dehydration and medication adjustment and consult nephrology CBC/BMP: 05/20/17 0944 05/20/17 0946 Significant Findings Laboratory Tests Test 05/17/17 16:19 05/17/17 16:30 05/17/17 22:40 05/18/17 05:58 Urine Turbidity HAZY (CLEAR) Urine Protein 30 mg/dL (NEG-TRACE) Urine Leukocyte Esterase LARGE (NEG) Urine WBC 23 /hpf (0-5) Urine Bacteria OCC /hpf (NONE) Urine Mucus FEW /lpf (OCC) Troponin I 0.08 NG/ML (0.02-0.05) Red Blood Count 3.12 MIL/MM3 (4.00-5.30) Hemoglobin 8.8 GM/DL (11.6-15.3) Hematocrit 27.5 % (35.0-46.0) Mean Corpuscular Hemoglobin Concent 31.8 % (32.0-36.0) Neutrophils (%) (Auto) 76.8 % (16.0-70.0) Eosinophils (%) (Auto) 4.2 % (0.0-4.0) Blood Urea Nitrogen 59 MG/DL (7-18) Creatinine 2.92 MG/DL (0.50-1.00) Albumin 2.8 GM/DL (3.4-5.0) Aspartate Amino Transf (AST/SGOT) 11 U/L (15-37) Chloride Level 120 MEQ/L (98-107) Carbon Dioxide Level 17.1 MEQ/L (21.0-32.0) Estimat Glomerular Filtration Rate 19 ML/MIN (>89) Hemoglobin A1c 6.7 % (4.3-6.0) Total Iron Binding Capacity 165 MCG/DL (250-450) Thyroid Stimulating Hormone 3rd Gen 0.301 uIU/ML (0.358-3.740) Test 05/19/17 13:00 05/20/17 09:44 05/20/17 09:46 Blood Urea Nitrogen 29 MG/DL (7-18) 19 MG/DL (7-18) Creatinine 1.51 MG/DL (0.50-1.00) 1.34 MG/DL (0.50-1.00) Random Glucose 167 MG/DL (74-106) 134 MG/DL (74-106) Sodium Level 146 MEQ/L (136-145) Chloride Level 117 MEQ/L (98-107) 113 MEQ/L (98-107) Carbon Dioxide Level 20.4 MEQ/L (21.0-32.0) Estimat Glomerular Filtration Rate 41 ML/MIN (>89) 47 ML/MIN (>89) White Blood Count 11.9 TH/MM3 (4.0-11.0) Red Blood Count 3.26 MIL/MM3 (4.00-5.30) Hemoglobin 9.1 GM/DL (11.6-15.3) Hematocrit 28.1 % (35.0-46.0) Neutrophils (%) (Auto) 79.7 % (16.0-70.0) Neutrophils # (Auto) 9.5 TH/MM3 (1.8-7.7) Potassium Level 3.3 MEQ/L (3.5-5.1) Imaging Last Impressions Renal Ultrasound 05/17/17 0000 Signed Impressions: Service Date/Time: Wednesday, May 17, 2017 17:59 - CONCLUSION: 1. Increased echogenicity of both kidneys typical of chronic parenchymal disease. 2. No evidence of obstructive uropathy or other acute abnormality. 3. Large but benign-appearing cyst of the left lower pole. Enzo Lemus MD PE at Discharge Awake alert oriented 3, nonacute distress Moist mucous membranes Clear lungs bilaterally S1-S2 present with regular rate and rhythm, no murmur absent gallops appreciated Abdomen is soft, nontender nondistended X percent no edema and the patient has +2 peripheral pulses. Pt update on day of discharge The patient denies chest pain or shortness of breath, denies fevers chills, denies nausea, vomiting. States that she feels very good and wants to go home. Case discussed with Dr. Welsh who agreed on discharge the patient today. Pt Condition on Discharge: Stable Discharge Disposition: Disch w/ Home Health Serv Discharge Time: > 30 minutes Discharge Instructions DIET: Follow Instructions for: Diabetic Diet Activities you can perform: Regular-No Restrictions, See Additionl Instruction Other Activity Instructions: out of bed with assistance follow up physical therapy instructions Follow up Referrals: PCP Follow-up - 1 Week Continued Medications: Fluticasone-Vilanterol Inh (Breo Ellipta Inh) 100-25 Mcg/Act Inh 1 PUFF INH DAILY, #1 INHALER 0 Refills Use daily at the same time. Levothyroxine (Levothyroxine) 25 Mcg Tab 25 MCG PO DAILY for Thyroid, #30 TAB 0 Refills Lisinopril (Lisinopril) 10 Mg Tab 10 MG PO DAILY, #30 TAB 0 Refills Simvastatin (Simvastatin) 20 Mg Tab 20 MG PO DAILY for Cholesterol Management, #30 TAB 0 Refills Temazepam (Temazepam) 15 Mg Cap 15 MG PO HS PRN for INSOMNIA, #30 CAP 0 Refills Tramadol (Tramadol) 50 Mg Tab 50 MG PO Q8H PRN for PAIN, TAB 0 Refills Trazodone (Trazodone) 50 Mg Tab 50 MG PO HS for Control Depression, #30 TAB 0 Refills Discontinued Medications: Zoster Vaccine Live Inj (Zostavax Inj) 0.65 Ml Inj 0.65 ML SQ .ONCE for Immunization, #1 VIAL 0 Refills Rubin Easton MD May 20, 2017 14:18
== END 2017-05-20 16:32 | disposition home health service (06) | DRG 683 ==
LOC: NEPE 12:05 → NEDA 15:51 → N05B 17:38
PROVIDERS: ADMIT Hospitalist; ATTEND Hospitalist
DX: N17.9 Acute kidney failure, unspecified (principal); E87.2 Acidosis; E11.22 Type 2 diabetes mellitus with diabetic chronic kidney disease; J44.9 Chronic obstructive pulmonary disease, unspecified; D64.9 Anemia, unspecified; I12.9 Hypertensive chronic kidney disease with stage 1 through stage 4 chronic kidney disease, or unspecified chronic kidney disease; M19.90 Unspecified osteoarthritis, unspecified site; E78.00 Pure hypercholesterolemia, unspecified; N18.9 Chronic kidney disease, unspecified; E86.0 Dehydration; F41.9 Anxiety disorder, unspecified; F32.9 Major depressive disorder, single episode, unspecified; Z83.3 Family history of diabetes mellitus; Z82.49 Family history of ischemic heart disease and other diseases of the circulatory system; E07.81 Sick-euthyroid syndrome; E03.9 Hypothyroidism, unspecified
CPT/HCPCS: 36415; 76775; 80048; 80053; 80061; 81001; 82272; 82550; 82728; 82948; 83036; 83540; 83550; 83735; 84100; 84439; 84443; 84481; 84484; 85025; 85027; 87086; 90686; 90732; 94150; J1644; J7030; Q2038

== ENCOUNTER → 2017-05-31 | Outpatient (CLI) | payer MEDICARE ==
[~2017-05-31] MED LIST changes: -AEROI INH; -DOXY100T OR; +FLUT1INH INH; +LEVO25TA4 PO; +LISI10TA3 PO; -LORT5TAB PO; -LORTA5 PO; -PRED20 PO; +SIMV20TA PO; -SYNT25TA PO; +TEMA15CA PO; +TRAM50TA PO; +TRAZ50TA12 PO; -VENTAER INH
[2017-05-31 09:05] LABS: ANION GAP 8 MEQ/L (5-15); AST (GOT) 13 U/L (15-37); BICARBONATE 27.1 MEQ/L (21.0-32.0); BLOOD UREA NITROGEN 11 MG/DL (7-18); CHLORIDE 108 MEQ/L (98-107); GLOMERULAR FILTRATION RATE 51 ML/MIN (>89); GLUCOSE,FASTING 129 MG/DL (74-99); POTASSIUM 3.6 MEQ/L (3.5-5.1); SODIUM (NA) 143 MEQ/L (136-145)
[2017-05-31 09:15] LABS: ALKALINE PHOSPHATASE 61 U/L (45-117); ALT (GPT) 13 U/L (10-53); FREE T3 2.29 PG/ML (2.18-3.98); FREE T4 1.29 NG/DL (0.76-1.46); LDL CHOLESTEROL 81 MG/DL (0-99); TOTAL BILIRUBIN ADULT 0.5 MG/DL (0.2-1.0)
[2017-05-31 15:49] LABS: HEMOGLOBIN A1a 1.3 %; HEMOGLOBIN A1b 1.8 %; HEMOGLOBIN Ao 84.1 %; HEMOGLOBIN LA1C 2.3 %; HEMOGLOBIN P3 5.5 %
== END ==
LOC: CLAB 08:01
PROVIDERS: ATTEND Internal Medicine
DX: E11.9 Type 2 diabetes mellitus without complications (principal); E78.5 Hyperlipidemia, unspecified; E03.9 Hypothyroidism, unspecified
CPT/HCPCS: 36415; 80053; 80061; 83036; 84439; 84443; 84481